=== PATIENT | female | born 1970 | race American Indian/Alaskan Native ===

== ENCOUNTER 2017-03-05 15:17 | Emergency (ER) | payer OTHER ==
[2017-03-05 15:30] VITALS: BP 154/77; PULSE 103; TEMP 99.1; BMI 26.7
--- NOTE | 2017-03-05 17:01 | PDOC ---
"History of Present Illness - General Chief Complaint: Injury Stated Complaint: HIP PAIN Time Seen by Provider: 03/05/17 16:59 History Source: Patient Exam Limitations: No Limitations - History of Present Illness Initial Comments: 03/05/17 17:03 My Chief Complaint: rt. hip pain History of Present Illness: 46-year-old female with a history of non-insulin- dependent diabetes, hypertension, depression and anxiety and gastric sleeve here today due to having pain in the right lateral hip 4 days after patient slid on the floor in her right hip. Patient denies any back pain or any radiation of pain down the leg. Patient denies any loss consciousness or any other injuries. Patient reports that pain is sharp when hip is turned different positions. Pt. denies numbness of rt. leg. Occurred: reports: other (4 days ago fall at work ) Severity: reports: moderate (rt. lateral hip) Pain Location: reports: lower extremity (rt. hip ), pelvis (rt.. lateral hip ) Method of Injury: Yes: fall Modifying Factors: improves with: immobilization, pain medication Loss of Consciousness: no loss of consciousness Associated Symptoms (Fall): denies symptoms Past History - Past Medical History Allergies/Adverse Reactions: Allergies Allergy/AdvReac Type Severity Reaction Status Date / Time No Known Drug Allergies Allergy Verified 03/05/17 15:28 SEAFOOD Allergy Intermediate Swelling Uncoded 03/05/17 15:28 Home Medications: Ambulatory Orders Naproxen [Naprosyn -] 500 mg PO BID PRN #14 tablet 03/05/17 Diabetes: Yes HTN: Yes Kidney Stones: Yes Psychiatric Problems: Yes (DEPRESSION,ANXEITY) - Surgical History Gastric Stapling: Yes (GASTRIC SLEEVE) - Psycho/Social/Smoking Cessation Hx Anxiety: Yes Suicidal Ideation: No Smoking Status: No Smoking History: Never smoked Have you smoked in the past 12 months: Yes Number of Cigarettes Smoked Daily: 5 'Breaking Loose' booklet given: 10/26/15 Hx Alcohol Use: No Drug/Substance Use Hx: No Substance Use Type: None Review of Systems - Review of Systems Able to Perform ROS?: Yes Constitutional: No: Symptoms Reported HEENTM: No: Symptoms Reported Respiratory: No: Symptoms reported Cardiac (ROS): No: Symptoms Reported ABD/GI: No: Symptoms Reported : No: Symptoms Reported Musculoskeletal: Yes: Joint Pain (rt. lateral hip ). No: Joint Swelling Integumentary: No: Symptoms Reported Neurological: No: Symptoms reported *Physical Exam - Vital Signs Last Vital Signs Temp Pulse Resp BP Pulse Ox 99.1 F 103 H 18 154/77 100 03/05/17 15:29 03/05/17 15:29 03/05/17 15:29 03/05/17 15:29 03/05/17 15:29 - Physical Exam General Appearance: Yes: Appropriately Dressed Respiratory/Chest: positive: Lungs Clear, Normal Breath Sounds. negative: Chest Tender, Respiratory Distress Cardiovascular: positive: Regular Rhythm, Regular Rate, S1, S2 Vascular Pulses: Dorsalis-Pedis (R): 4+ Musculoskeletal: positive: Normal Inspection. negative: CVA Tenderness, CVA Tenderness (R), CVA Tenderness (L), Vertebral Tenderness Extremity: positive: Normal Capillary Refill, Normal Inspection, Tender (rt. lateral hip ), Pelvis Stable. negative: Normal Range of Motion (rt. hip ), Swelling Integumentary: positive: Normal Color Neurologic: positive: Alert, Normal Response, Motor Strength 5/5 (b/l legs ), Respond to painful stimul (legs ). negative: Sensory Deficit (legs ) ED Treatment Course - RADIOLOGY Radiology Studies Ordered: Category Date Time Status HIP & PELVIS-RIGHT [RAD] Stat Radiology 03/05/17 16:59 Ordered Medical Decision Making - Medical Decision Making 03/05/17 17:06 46-year-old female with a history of [id number] diabetes, hypertension, depression and anxiety and gastric sleeve here today due to having pain in the right lateral hip 4 days after patient slid on the floor in her right hip. Patient denies any back pain or any radiation of pain down the leg. Patient denies any loss consciousness or any other injuries. Patient reports that pain is sharp when hip is turned different positions. Pt. denies numbness of rt. leg. Pt. denies any chance of being rt. hip pain r/o fracture FAll 4 days ago PLAN: xray rt. hip/pelvis no fracture noted percocet 5mg/325 mg po now 03/05/17 17:52 follow up with orthopedist for further evaluation as soon as possible 03/05/17 17:52 03/05/17 17:58 Confidential Drug Utilization Report Search Terms: Shreya Arnett, 1970 Search Date: 03/05/2017 05:58:00 PM This report was requested by: Yolanda Urrutia | Reference #: [id number] Others' Prescriptions Patient Name: Shreya Arnett Date: 1970 Address: [address] [place] [address] Sex: Female Rx Written Rx Dispensed Drug Quantity Days Supply Prescriber Name 02/27/2017 02/27/2017 oxycodone-acetaminophen 5-325 mg tab 40 20 Marcellus Bautista MD 02/02/2017 02/03/2017 oxycodone-acetaminophen 5-325 mg tab 35 17 Marcellus Bautista MD 03/05/17 18:49 NAPROSYN 500 MG BID PRN PAIN x 14 TABS FOLLOW UP WITH ORTHOPEDIST *DC/Admit/Observation/Transfer Diagnosis at time of Disposition: Fall Qualifiers: Encounter type: initial encounter Qualified Code(s): W19.XXXA - Unspecified fall, initial encounter Hip pain, acute Qualifiers: Laterality: right Qualified Code(s): M25.551 - Pain in right hip - Discharge Dispostion Disposition: HOME Condition at time of disposition: Stable - Prescriptions Prescriptions: Naproxen [Naprosyn -] 500 mg PO BID PRN #14 tablet PRN Reason: Pain - Referrals Referrals: Cheryl Mccracken PA [Primary Care Provider] - Jim Vizcaino MD [Staff Physician] - - Patient Instructions Additional Instructions: follow up with orthopedist as soon as possible for further evaluation Avoid strenous activities or exercise take ibuprofen as needed as directed by director of guidance for moderate pain return to emergency room if symptoms worsen or new symptoms develop Patient voiced understanding of discharge instructions and all questions were answered - Post Discharge Activity Work/School Note: Back to Work"
[2017-03-05] MEDS ORDERED: OXYCODONE/APAP 5/325MG COMBO TABLET PO ONE (17:52)
[2017-03-05] MEDS ORDERED: OXYCODONE/APAP 5/325MG COMBO TABLET ONE (17:56)
== END 2017-03-05 19:23 | disposition home or self-care (01) ==
LOC: JERFT 15:17
DX: M25.551 Pain in right hip (principal); W18.39XA Other fall on same level, initial encounter; Y93.89 Activity, other specified; Y92.511 Restaurant or cafe as the place of occurrence of the external cause; Y99.0 Civilian activity done for income or pay; I10 Essential (primary) hypertension; E11.9 Type 2 diabetes mellitus without complications; F41.8 Other specified anxiety disorders; Z87.442 Personal history of urinary calculi
CPT/HCPCS: 73523-TC; 99281-25

== ENCOUNTER 2017-06-02 12:58 | Day surgery (SDC) | payer OTHER ==
[2017-06-01 11:09] VITALS: BMI 27.3
[~2017-06-02 12:58] MED LIST: BETAMET ACET/BETAMET NA PH 30 MG/5 ML VIAL IM ONE; BUPIVACAINE HCL/PF 0.25% (2.5MG/ML) 10 ML VIAL IJ ONE; IOHEXOL 300 MG/ML INFUS..BTL IV ONE; LIDOCAINE HCL 1%, 10 MG/ML (20ML VIAL) IJ ONE
[2017-06-02] MEDS ORDERED: BETAMET ACET/BETAMET NA PH 30 MG/5 ML VIAL ONE (13:13)
[2017-06-02] MEDS ORDERED: LIDOCAINE HCL 1%, 10 MG/ML (20ML VIAL) ONE (13:13)
[2017-06-02] MEDS ORDERED: BUPIVACAINE HCL/PF 0.5% (5MG/ML) 10 ML VIAL ONE (13:14)
[2017-06-02] MEDS ORDERED: BUPIVACAINE HCL/PF 0.25% (2.5MG/ML) 10 ML VIAL ONE (13:14)
[2017-06-02 13:44] VITALS: TEMP 98
[2017-06-02] MEDS ORDERED: PROPOFOL 20 ML ONE ×2 (14:13→14:29)
[2017-06-02] MEDS ORDERED: LIDOCAINE HCL 2% (20ML MULTI-DOSE VIAL) NR ONE (14:13)
[2017-06-02] MEDS ORDERED: LIDOCAINE HCL 1%, 10 MG/ML (20ML VIAL) INF ONE (14:30)
[2017-06-02] MEDS ORDERED: BUPIVACAINE HCL/PF 0.25% (2.5MG/ML) 10 ML VIAL IJ ONE (14:30)
[2017-06-02] MEDS ORDERED: BETAMET ACET/BETAMET NA PH 30 MG/5 ML VIAL IM ONE (14:33)
[2017-06-02 17:24] VITALS: BP 101/58; PULSE 67
--- NOTE | 2017-06-04 11:56 | OP ---
DATE OF OPERATION: 06/02/2017 PREOPERATIVE DIAGNOSES: Low back pain and lumbar radiculopathy. POSTOPERATIVE DIAGNOSES: Low back pain and lumbar radiculopathy. PROCEDURE: Lumbar epidural steroid injection, interlaminar at left L4-L5 level without dye. ANESTHESIA: Local and MAC. ANESTHESIOLOGIST: Arianna Lisa MD CONSENT: I discussed with her in detail about the risks, benefits, and alternative treatment, not only limited to infection, fever, headache, numbness, tingling, and weakness; injury to blood vessels, muscles, and nerves. Patient understood, agreed, and signed the written consent. DESCRIPTION OF PROCEDURE: Patient was placed in the prone position with the head, abdomen, and legs supported with pillows. Lumbosacral area was prepped, draped with Betadine x3 and alcohol x3. Under fluoroscopy, left L4-L5 area was identified. At this level, 3 mL of 1% lidocaine was infiltrated into the skin and subcutaneous tissue. A 20-gauge 3-1/2-inch Tuohy needle was used to approach the epidural space with loss of resistance technique under intermittent fluoroscopy both AP and oblique view. After negative aspiration, a solution containing 2.5 mL of Celestone mixed with 0.25% preservative-free Marcaine, total of 5 mL was injected at this level. While needle was withdrawn, 1 mL of 1% lidocaine was infiltrated. Bleeding was checked. Betadine was wiped off. A sterile bandage was placed. Patient was transferred to recovery room. Patient was observed in ASU and discharged as ASU criteria. Patient was told to apply ice. If any problem, call me or report to the ER. Followup appointment was given. LUISA HWANG M.D. KYLE/[id number]
== END 2017-06-02 17:28 | disposition home or self-care (01) ==
LOC: JASU-SURG 12:58
PROVIDERS: ATTEND Physical Medicine & Rehabilitation
PROC: 3E0R3CZ (ICD-10-PCS; 2017-06-02)
PROC: B01BZZZ Fluoroscopy of Spinal Cord (ICD-10-PCS; 2017-06-02)
PROC: 3E0R33Z Introduction of Anti-inflammatory into Spinal Canal, Percutaneous Approach (ICD-10-PCS; principal; 2017-06-02 14:00)
DX: M54.16 Radiculopathy, lumbar region (principal); M54.5 Low back pain
CPT/HCPCS: 76000-TC

== ENCOUNTER 2017-07-21 08:54 | Emergency (ER) | payer OTHER ==
[2017-07-21 09:10] VITALS: BMI 26.5
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
[2017-07-21] MEDS ORDERED: KETOROLAC TROMETHAMINE 60 MG/2 ML VIAL IM ONE (09:36)
[2017-07-21] MEDS ORDERED: CYCLOBENZAPRINE HCL 10 MG TABLET (FP) PO ONE (09:36)
[2017-07-21] MEDS ORDERED: CYCLOBENZAPRINE HCL 10 MG TABLET (FP) ONE (10:01)
[2017-07-21] MEDS ORDERED: KETOROLAC TROMETHAMINE 60 MG/2 ML VIAL ONE (10:01)
[2017-07-21 10:15] LABS: URINE APPEARANCE SLCLOUDY; URINE BILIRUBIN NEGATIVE (NEGATIVE); URINE BLOOD NEGATIVE (NEGATIVE); URINE COLOR AMBER; URINE GLUCOSE (UA) NEGATIVE (NEGATIVE); URINE KETONE TRACE (NEGATIVE); URINE LEUK ESTERASE NEGATIVE (NEGATIVE); URINE NITRITE NEGATIVE (NEGATIVE); URINE UROBILINOGEN NEGATIVE mg/dL (0.2-1.0)
[2017-07-21 10:23] LABS: URINE PROTEIN 1+ (NEGATIVE)
[2017-07-21 10:52] LABS: URINE BACTERIA RARE /hpf (NONE SEEN); URINE MUCUS MANY; URINE RBC 3 /hpf (0-3); URINE WBC 2 /hpf (3-5)
[2017-07-21 11:10] VITALS: BP 123/68; PULSE 71; TEMP 98.1
== END 2017-07-21 11:19 | disposition home or self-care (01) ==
LOC: JER 08:54 → JERFT 08:54 → JER 11:19
PROC: 3E0233Z Introduction of Anti-inflammatory into Muscle, Percutaneous Approach (ICD-10-PCS; principal; 2017-07-21)
DX: M54.41 Lumbago with sciatica, right side (principal); I10 Essential (primary) hypertension; E11.9 Type 2 diabetes mellitus without complications; Z87.442 Personal history of urinary calculi
CPT/HCPCS: 81003; 81015; 84703; 96372; 99282-25

== ENCOUNTER 2017-11-11 10:28 | Emergency (ER) | payer OTHER ==
[2017-11-11 10:45] VITALS: BP 111/78; PULSE 91; TEMP 98.2; BMI 25.4
[2017-11-11] MEDS ORDERED: KETOROLAC TROMETHAMINE 60 MG/2 ML VIAL IM ONE (11:43)
--- NOTE | 2017-11-11 11:49 | PDOC ---
History of Present Illness - General Chief Complaint: Pain Stated Complaint: RT SIDE PAIN Time Seen by Provider: 11/11/17 11:34 History Source: Patient Exam Limitations: No Limitations - History of Present Illness Initial Comments: 11/11/17 11:46 Patient came tearful with pain to her right shoulder and upper arm times proximally 2 weeks. States had an incident approximately one month ago where had same type of pain that spontaneously resolved. This episode has not resolved with attempts using icy hot, BenGay creams, ibuprofen and Tylenol. Patient denies any changes in exercise, heavy lifting or Accidents. 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 Is uncertain as to cause, denies fever, swelling, weakness to her hand. States certain movements including abduction and rotation exacerbates the pain more. Occurred: reports: last week Severity: reports: moderate, severe Pain Location: reports: upper extremity (right shoulder) Method of Injury: Yes: unknown Associated Symptoms (Fall): denies symptoms Past History - Travel Traveled outside of the country in the last 30 days: No Close contact w/someone who was outside of country & ill: No - Past Medical History Allergies/Adverse Reactions: Allergies Allergy/AdvReac Type Severity Reaction Status Date / Time No Known Drug Allergies Allergy Verified 11/11/17 10:42 SEAFOOD Allergy Intermediate Swelling Uncoded 11/11/17 10:42 Home Medications: Ambulatory Orders Naproxen [Naprosyn -] 500 mg PO BID #14 tablet 11/11/17 Oxycodone HCl/Acetaminophen [Percocet 5-325 mg Tablet -] 1 - 2 tab PO Q4H PRN # 7 tablet MDD 4 11/11/17 COPD: No Diabetes: Yes HTN: Yes Kidney Stones: Yes Psychiatric Problems: Yes (DEPRESSION,ANXEITY) - Surgical History Abdominal Surgery: Yes Gastric Stapling: Yes (GASTRIC SLEEVE) - Suicide/Smoking/Psychosocial Hx Smoking Status: No Smoking History: Never smoked Have you smoked in the past 12 months: Yes Number of Cigarettes Smoked Daily: 5 'Breaking Loose' booklet given: 09/11/17 Hx Alcohol Use: No Drug/Substance Use Hx: No Substance Use Type: None Trauma Specific PMHX - Complaint Specific PMHX Back Injury: No Neck Injury: No Review of Systems - Review of Systems Able to Perform ROS?: Yes Is the patient limited British proficient: Yes Constitutional: Yes: Symptoms Reported, See HPI, Malaise. No: Fever HEENTM: Yes: See HPI. No: Symptoms Reported Respiratory: Yes: See HPI. No: Symptoms reported, Cough ABD/GI: No: Symptoms Reported : No: Symptoms Reported Musculoskeletal: Yes: Symptoms Reported, See HPI, Joint Pain (right shoulder), Joint Swelling, Muscle Pain Integumentary: Yes: See HPI. No: Symptoms Reported, Rash Neurological: Yes: See HPI. No: Symptoms reported, Numbness, Paresthesia All Other Systems: Reviewed and Negative *Physical Exam - Vital Signs Last Vital Signs Temp Pulse Resp BP Pulse Ox 98.2 F 91 H 18 111/78 99 11/11/17 10:42 11/11/17 10:42 11/11/17 10:42 11/11/17 10:42 11/11/17 10:42 - Physical Exam General Appearance: Yes: Nourished, Appropriately Dressed, Mild Distress, Moderate Distress HEENT: positive: BERT, Normal ENT Inspection, TMs Normal, Pharynx Normal Neck: positive: Tender, Supple. negative: Lymphadenopathy (R), Lymphadenopathy (L) Respiratory/Chest: positive: Lungs Clear, Normal Breath Sounds Musculoskeletal: positive: Normal Inspection, Decreased Range of Motion. negative: Vertebral Tenderness Extremity: positive: Normal Capillary Refill, Normal Inspection. negative: Normal Range of Motion (limited range of motion secondary to exquisite pain to right upper arm. Has no bogginess or tension to muscles, however tenderness is reproduced at ligamentous insertion of inferior deltoid area. Range of motion limited to approximately 30 abduction and worse against resistance. Unable to forward flex the posterior flex past 30. Strong grasp, flexion and extension to wrist and hand. Neurovascular intact.) Integumentary: positive: Normal Color, Dry, Warm Neurologic: positive: manager of patient II-XII NML intact, Fully Oriented, Alert, Normal Mood/ Affect, Normal Response, Motor Strength 5/5 ED Treatment Course - RADIOLOGY Radiology Studies Ordered: Category Date Time Status SHOULDER-RIGHT [RAD] Stat Radiology 11/11/17 11:43 Ordered Progress Note - Progress Note Progress Note: Right shoulder tendinitis, will treat with NSAIDs and have follow-up with orthopedist for further intervention as needed. Provided #7 Percocet for severe pain *DC/Admit/Observation/Transfer Diagnosis at time of Disposition: Tendinitis of shoulder Qualifiers: Laterality: right Qualified Code(s): M75.81 - Other shoulder lesions, right shoulder - Discharge Dispostion Disposition: HOME Condition at time of disposition: Stable - Prescriptions Prescriptions: Naproxen [Naprosyn -] 500 mg PO BID #14 tablet Oxycodone HCl/Acetaminophen [Percocet 5-325 mg Tablet -] 1 - 2 tab PO Q4H PRN # 7 tablet MDD 4 PRN Reason: Pain - Referrals Referrals: Jim Vizcaino MD [Staff Physician] - - Patient Instructions Printed Discharge Instructions: DI for Shoulder Tendinopathy Additional Instructions: Rest, ice to area on and off for 15 minutes 4-6 times a day Avoid heavy lifting or exercise until pain and swelling is resolved or until further directed Keep area highly elevated to reduce swelling Use splints/Placido wrap as directed Followup with orthopedist in one to 2 days if not improving, if significantly improved may wait one week for followup with orthopedist May use Naprosyn 500 mg tablet every 8 hours as needed for pain May use Percocet for severe pain - Post Discharge Activity Forms/Work/School Notes: Back to Work
[2017-11-11] MEDS ORDERED: KETOROLAC TROMETHAMINE 60 MG/2 ML VIAL ONE (11:50)
== END 2017-11-11 12:25 | disposition home or self-care (01) ==
LOC: JERFT 10:28
PROC: 3E0233Z Introduction of Anti-inflammatory into Muscle, Percutaneous Approach (ICD-10-PCS; principal; 2017-11-11)
DX: M75.81 Other shoulder lesions, right shoulder (principal)
CPT/HCPCS: 73030-TC-RT; 96372; 99281-25

== ENCOUNTER 2018-05-06 15:56 | Emergency (ER) | payer OTHER ==
--- NOTE | 2018-05-06 16:34 | PDOC ---
Rapid Medical Evaluation Time Seen by Provider: 05/06/18 16:33 Medical Evaluation: Allergies Allergy/AdvReac Type Severity Reaction Status Date / Time No Known Drug Allergies Allergy Verified 11/11/17 10:42 SEAFOOD Allergy Intermediate Swelling Uncoded 11/11/17 10:42 I have performed a brief in-person evaluation of this patient. The patient presents with a chief complaint of: sharp pain in left eye with left eye redness today. Patient does not wear contacts Pertinent physical exam findings: injected left conjunctiva. clear discharge from left eye. No visible rash. I have ordered the following: nothing. Patient had a hysterectomy. The patient will proceed to the ED for further evaluation. Discharge Disposition - Diagnosis Left eye pain - Referrals - Patient Instructions - Post Discharge Activity
[2018-05-06 16:38] VITALS: BP 133/72; PULSE 91; TEMP 98.7; BMI 24.4
--- NOTE | 2018-05-06 17:05 | PDOC ---
History of Present Illness - General Chief Complaint: Eye Problem Stated Complaint: EYE PROBLEM Time Seen by Provider: 05/06/18 16:33 History Source: Patient Exam Limitations: No Limitations - History of Present Illness Initial Comments: 05/06/18 17:00 47-year-old female complains of left eye burning and pain without visual changes since this morning upon awakening. Patient denies foreign body, wearing eye contacts, or injury to the eye. Timing/Duration: 4-6 hours Severity: moderate Associated Symptoms: reports: denies symptoms Past History - Travel Traveled outside of the country in the last 30 days: No - Past Medical History Allergies/Adverse Reactions: Allergies Allergy/AdvReac Type Severity Reaction Status Date / Time No Known Drug Allergies Allergy Verified 05/06/18 16:35 SEAFOOD Allergy Intermediate Swelling Uncoded 11/11/17 10:42 Home Medications: Ambulatory Orders NK [No Known Home Medication] 05/06/18 COPD: No Diabetes: Yes HTN: Yes Kidney Stones: Yes Psychiatric Problems: Yes (DEPRESSION,ANXEITY) - Surgical History Abdominal Surgery: Yes Gastric Stapling: Yes (GASTRIC SLEEVE) - Suicide/Smoking/Psychosocial Hx Smoking Status: No Smoking History: Never smoked Have you smoked in the past 12 months: Yes Number of Cigarettes Smoked Daily: 5 Information on smoking cessation initiated: No 'Breaking Loose' booklet given: 09/11/17 Hx Alcohol Use: No Drug/Substance Use Hx: No Substance Use Type: None Patient Lives Alone: No Lives with/in: spouse/SO Review of Systems - Review of Systems Able to Perform ROS?: No Constitutional: No: Symptoms Reported HEENTM: Yes: Eye Pain, Tearing Integumentary: No: Symptoms Reported Neurological: No: Symptoms reported, Headache *Physical Exam - Vital Signs Last Vital Signs Temp Pulse Resp BP Pulse Ox 98.7 F 91 H 18 133/72 98 05/06/18 16:35 05/06/18 16:35 05/06/18 16:35 05/06/18 16:35 05/06/18 16:35 - Physical Exam General Appearance: Yes: Nourished, Appropriately Dressed. No: Apparent Distress HEENT: positive: EOMI, BERT ( left eye- conjunctiva pink, Sclera erythematous. noted 1 cm corneal abrasionfrom 10:00 t), Pharynx Normal. negative: Pale Conjunctivae Neck: positive: Supple Respiratory/Chest: positive: Lungs Clear, Normal Breath Sounds. negative: Respiratory Distress, Accessory Muscle Use Cardiovascular: positive: Regular Rhythm, Regular Rate. negative: Murmur Gastrointestinal/Abdominal: positive: Soft Integumentary: positive: Normal Color, Warm, Moist Neurologic: positive: Motor Strength 5/5 (ambulatory) Medical Decision Making - Medical Decision Making 05/06/18 17:08 Patient with left eye pain. After fluorescein staining patient was noted to have a corneal abrasion. Patient will be ordered for ointment along with Optho referral. *DC/Admit/Observation/Transfer Diagnosis at time of Disposition: Left eye pain, Corneal abrasion, left - Discharge Dispostion Disposition: HOME Condition at time of disposition: Good - Referrals Referrals: Saeid Nichols MD [Staff Physician] - - Patient Instructions Printed Discharge Instructions: DI for Corneal Abrasion Additional Instructions: Use ointment as prescribed. Please avoid rubbing or itching. Please follow up with ophthalmology. Allow eye to rest. Avoiding frequent opening closing and wear sunglasses when outside. - Post Discharge Activity
== END 2018-05-06 17:31 | disposition home or self-care (01) ==
LOC: JERFT 15:56
DX: S05.02XA Injury of conjunctiva and corneal abrasion without foreign body, left eye, initial encounter (principal); I10 Essential (primary) hypertension; Z87.442 Personal history of urinary calculi; Z91.013 Allergy to seafood
CPT/HCPCS: 99281-25

== ENCOUNTER 2018-07-18 16:05 | Emergency (ER) | payer OTHER ==
[2018-07-18 16:12] VITALS: BP 112/73; PULSE 86; TEMP 97.9; BMI 25.4
--- NOTE | 2018-07-18 16:20 | PDOC ---
History of Present Illness - General Chief Complaint: Cold Symptoms Stated Complaint: COUGH Time Seen by Provider: 07/18/18 16:07 History Source: Patient Exam Limitations: No Limitations - History of Present Illness Initial Comments: 07/18/18 16:15 47 y/o female with cough, congestion for 5 days. No fever or chills. Mild productive cough. No sick contacts, traveling or SOB. Denies back pain or chest pain. Past History - Past Medical History Allergies/Adverse Reactions: Allergies Allergy/AdvReac Type Severity Reaction Status Date / Time No Known Drug Allergies Allergy Verified 05/06/18 16:35 SEAFOOD Allergy Intermediate Swelling Uncoded 11/11/17 10:42 Home Medications: Ambulatory Orders Azithromycin [Zithromax -] 250 mg PO UTDICT #6 tab 07/18/18 Benzonatate [Tessalon Pearls -] 100 mg PO TID #21 capsule 07/18/18 COPD: No Diabetes: Yes HTN: Yes Kidney Stones: Yes Psychiatric Problems: Yes (DEPRESSION,ANXEITY) - Surgical History Abdominal Surgery: Yes Gastric Stapling: Yes (GASTRIC SLEEVE) - Suicide/Smoking/Psychosocial Hx Smoking Status: No Smoking History: Former smoker Have you smoked in the past 12 months: No Number of Cigarettes Smoked Daily: 0 If you are a former smoker, when did you quit?: 2015 Information on smoking cessation initiated: Yes 'Breaking Loose' booklet given: 09/11/17 Hx Alcohol Use: No Drug/Substance Use Hx: No Substance Use Type: None Review of Systems - Review of Systems Able to Perform ROS?: Yes Is the patient limited Setswana proficient: No Constitutional: No: Chills, Fever, Malaise HEENTM: No: Throat Pain Respiratory: Yes: Cough, Productive cough. No: Shortness of Breath, Hemoptysis Cardiac (ROS): No: Chest Pain ABD/GI: No: Nausea, Vomiting Musculoskeletal: No: Back Pain All Other Systems: Reviewed and Negative *Physical Exam - Vital Signs Last Vital Signs Temp Pulse Resp BP Pulse Ox 97.9 F 86 20 112/73 97 07/18/18 16:06 07/18/18 16:06 07/18/18 16:06 07/18/18 16:06 07/18/18 16:06 - Physical Exam General Appearance: Yes: Nourished, Appropriately Dressed. No: Apparent Distress HEENT: positive: EOMI, BERT, Normal ENT Inspection, Normal Voice, Symmetrical, Pharynx Normal Neck: positive: Trachea midline, Normal Thyroid, Supple. negative: Tender, Rigid Respiratory/Chest: positive: Lungs Clear (d), Normal Breath Sounds. negative: Chest Tender, Respiratory Distress Cardiovascular: positive: Regular Rhythm, Regular Rate, S1, S2. negative: Edema , JVD, Murmur Vascular Pulses: Femoral (R): 4+, Femoral (L): 4+, Carotid (R): 4+, Carotid (L) : 4+, Dorsalis-Pedis (R): 4+, Doralis-Pedis (L): 4+ Gastrointestinal/Abdominal: positive: Normal Bowel Sounds, Flat, Soft. negative : Tender Lymphatic: negative: Adenopathy, Tenderness, Other Musculoskeletal: positive: Normal Inspection. 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-XII NML intact, Fully Oriented, Alert, Normal Mood/ Affect, Normal Response, Motor Strength 5/5 ED Treatment Course - ADDITIONAL ORDERS Additional order review: 07/18/18 16:17 Patient appears to have bronchitis Will cover with Z-pack and Kalinasalon Aleida Patient is in agreement with plan If worsen return to ER *DC/Admit/Observation/Transfer Diagnosis at time of Disposition: Bronchitis Diagnosis at time of Disposition: (Ruled Out): Bronchitis due to Staphylococcus aureus - Discharge Dispostion Disposition: HOME Condition at time of disposition: Stable Decision to Admit order: No - Referrals - Patient Instructions Printed Discharge Instructions: DI for Acute Bronchitis Additional Instructions: Fluids, rest, Motrin Joann Shin as directed Z-pack as directed If worsen return to ER - Post Discharge Activity
== END 2018-07-18 17:07 | disposition home or self-care (01) ==
LOC: FER 16:05
DX: J40 Bronchitis, not specified as acute or chronic (principal); Z87.891 Personal history of nicotine dependence; Z98.84 Bariatric surgery status
CPT/HCPCS: 99281-25

== ENCOUNTER 2018-12-01 10:51 | Emergency (ER) | payer SELFPAY ==
[2018-12-01 11:05] VITALS: BP 125/84; PULSE 111; TEMP 98.7; BMI 28.3
--- NOTE | 2018-12-01 12:58 | PDOC ---
History of Present Illness - General Chief Complaint: Cold Symptoms Stated Complaint: FEVER/BODY ACHE Time Seen by Provider: 12/01/18 12:53 History Source: Patient Exam Limitations: No Limitations Past History - Travel Traveled outside of the country in the last 30 days: No Close contact w/someone who was outside of country & ill: No - Past Medical History Allergies/Adverse Reactions: Allergies Allergy/AdvReac Type Severity Reaction Status Date / Time No Known Drug Allergies Allergy Verified 12/01/18 11:05 SEAFOOD Allergy Intermediate Swelling Uncoded 12/01/18 11:05 Home Medications: Ambulatory Orders Azithromycin [Zithromax -] 250 mg PO UTDICT #6 tab 07/18/18 Benzonatate [Tessalon Pearls -] 100 mg PO TID #21 capsule 07/18/18 Acetaminophen [Tylenol] 650 mg PO Q4H #30 tablet 12/01/18 Albuterol Sulfate Inhaler - [Ventolin HFA Inhaler -] 1 - 2 inh PO Q4H #1 inhaler 12/01/18 Guaifenesin AC [Robitussin AC] 10 ml PO Q8H #200 ml MDD 3 12/01/18 Ibuprofen 600 mg PO Q6H #30 tablet 12/01/18 Oseltamivir Phosphate [Tamiflu] 75 mg PO BID #10 capsule 12/01/18 COPD: No Diabetes: Yes HTN: Yes Kidney Stones: Yes Psychiatric Problems: Yes (DEPRESSION,ANXEITY) - Surgical History Abdominal Surgery: Yes Gastric Stapling: Yes (GASTRIC SLEEVE) - Suicide/Smoking/Psychosocial Hx Smoking Status: No Smoking History: Never smoked Have you smoked in the past 12 months: No Number of Cigarettes Smoked Daily: 0 If you are a former smoker, when did you quit?: 2016 Information on smoking cessation initiated: No 'Breaking Loose' booklet given: 09/11/17 Hx Alcohol Use: No Drug/Substance Use Hx: No Substance Use Type: None Review of Systems - Review of Systems Able to Perform ROS?: Yes Comments:: 12/01/18 13:51 CONSTITUTIONAL: Present: Fever, chills, body aches Absent: diaphoresis, generalized weakness, malaise, loss of appetite HEENT: Present: rhinorrhea, nasal congestion, throat pain. Absent: difficulty swallowing, mouth swelling, ear pain, eye pain, visual Changes CARDIOVASCULAR: Absent: chest pain, loss of consciousness, palpitations, irregular heart rate, peripheral edema RESPIRATORY: Present: Cough Absent: shortness of breath, dyspnea with exertion, orthopnea, wheezing, stridor, hemoptysis GASTROINTESTINAL: Absent: abdominal pain, abdominal distension, nausea, vomiting, diarrhea, constipation, melena, hematochezia SKIN: Absent: rash, itching, pallor NEUROLOGIC: Present: headache Absent: focal weakness or paresthesias, dizziness, unsteady gait, seizure, mental status changes, bladder or bowel incontinence Is the patient limited Tajik proficient: No *Physical Exam - Vital Signs Last Vital Signs Temp Pulse Resp BP Pulse Ox 98.7 F 111 H 19 125/84 96 12/01/18 11:03 12/01/18 11:03 12/01/18 11:03 12/01/18 11:03 12/01/18 11:03 - Physical Exam Comments: 12/01/18 12:57 GENERAL: Well developed, well nourished. Awake and alert. No acute distress. HEENT: Normocephalic, atraumatic. PERRLA, EOMI. No conjunctival pallor. Sclera are non- icteric. Moist mucous membranes. Oropharynx is clear. NECK: Supple. Full ROM. No JVD. Carotid pulses 2+ and symmetric, without bruits. No thyromegaly. No lymphadenopathy. CARDIOVASCULAR: Regular rate and rhythm. No murmurs, rubs, or gallops. Distal pulses are 2+ and symmetric. PULMONARY: No evidence of respiratory distress. Lungs clear to auscultation bilaterally. No wheezing, rales or rhonchi. ABDOMINAL: Soft. Non-tender. Non-distended. No rebound or guarding. No organomegaly. Normoactive bowel sounds. MUSCULOSKELETAL Normal range of motion at all joints. No bony deformities or tenderness. No CVA tenderness. EXTREMITIES: No cyanosis. No clubbing. No edema. No calf tenderness. SKIN: Warm and dry. Normal capillary refill. No rashes. No jaundice. NEUROLOGICAL: Alert, awake, appropriate. Cranial nerves 2-12 intact. No deficits to light touch and temperature in face, upper extremities and lower extremities. No motor deficits in the in face, upper extremities and lower extremities. Normoreflexic in the upper and lower extremities. Normal speech. Toes are down- going bilaterally. Gait is normal without ataxia. PSYCHIATRIC: Cooperative. Good eye contact. Appropriate mood and affect. Moderate Sedation - Procedure Monitoring Vital Signs: Procedure Monitoring Vital Signs Temperature 98.7 F 12/01/18 11:03 Pulse Rate 111 H 12/01/18 11:03 Respiratory Rate 12/01/18 11:03 Blood Pressure 125/84 12/01/18 11:03 O2 Sat by Pulse Oximetry (%) 96 12/01/18 11:03 *DC/Admit/Observation/Transfer Diagnosis at time of Disposition: Influenza - Discharge Dispostion Disposition: HOME Condition at time of disposition: Stable Decision to Admit order: No - Referrals Referrals: Rafael Tang MD [Staff Physician] - - Patient Instructions Printed Discharge Instructions: DI for Influenza -- Adult Additional Instructions: You have the flu. This is a virus that will get better on its own in approximately 7-10 days. You will most likely have a fever for 7-10 days because of the flu. This is to be expected. Drink plenty of fluids to prevent dehydration and get plenty of rest. Warm tea and cough drops may help your symptoms as well. Take the tamiflu twice a day for 5 days to help reduce the symptoms of the flu. This medication will not cure the flu. Take Motrin as directed for pain and fever. Take Tylenol as directed for pain and fever Take all other medications as prescribed. Follow up with your primary care doctor this week Return to the ED for difficulty breathing, shortness of breath, weakness, or if you have any other changes in your symptoms. - Post Discharge Activity Forms/Work/School Notes: Back to Work
[2018-12-01] MEDS ORDERED: ALBUTEROL SO4 2.5/IPRATROPIUM 0.5 INH SOL 3 ML VIAL.NEB. NEB ONE ×2 (13:06→13:13)
[2018-12-01] MEDS ORDERED: DEXAMETHASONE LIQUID 0.5 MG/5 ML 240 ML BULK BOTTLE PO ONE (13:06)
[2018-12-01] MEDS ORDERED: ACETAMINOPHEN 325 MG TABLET (FP) PO ONE (13:07)
[2018-12-01] MEDS ORDERED: guaiFENesin/CODEINE 10 ML UNIT-DOSE CUPS PO ONE (13:07)
[2018-12-01] MEDS ORDERED: DEXAMETHASONE SOD PHOSPHATE 10 MG/1 ML VIAL ONE (13:13)
[2018-12-01] MEDS ORDERED: guaiFENesin/CODEINE 5 ML UNIT-DOSE CUPS PO ONE (13:13)
[2018-12-01] MEDS ORDERED: ACETAMINOPHEN 325 MG TABLET (FP) ONE (13:14)
== END 2018-12-01 13:58 | disposition home or self-care (01) ==
LOC: JERFT 10:51
DX: J11.1 Influenza due to unidentified influenza virus with other respiratory manifestations (principal); Z87.891 Personal history of nicotine dependence; I10 Essential (primary) hypertension; E11.9 Type 2 diabetes mellitus without complications; F41.8 Other specified anxiety disorders; Z98.84 Bariatric surgery status
CPT/HCPCS: 71046-TC-FY; 87070; 87804; 87880; 99281-25

== ENCOUNTER 2018-12-03 08:23 | Emergency (ER) | payer SELFPAY ==
[2018-12-03 08:30] VITALS: TEMP 98.6; BMI 23.6
[2018-12-03] MEDS ORDERED: ACETAMINOPHEN 500 MG TABLET (FP) PO ONE (09:10)
[2018-12-03] MEDS ORDERED: ACETAMINOPHEN 325 MG TABLET (FP) ONE (09:16)
--- NOTE | 2018-12-03 09:23 | PDOC ---
Attending Attestation - Resident Resident Name: Dean Bates - ED Attending Attestation I have performed the following: I have examined & evaluated the patient, The case was reviewed & discussed with the resident, I agree w/resident's findings & plan, Exceptions are as noted - HPI HPI: 12/03/18 11:10 48 years [place] past medical history presents to the emergency Department with nausea and diarrhea fever chills body aches tested positive for the flu the other day symptoms have worsened since starting on Tamiflu. Mild headache no neck pain no rash symptoms are moderate persistent constant worsening since starting medication no alleviating factors. - Physicial Exam PE: 12/03/18 11:10 Vitals: Triage Vital signs reviewed General Appearance: no acute distress, well nourished well developed, Head: Atraumatic, Eyes: Pupils equal reactive round, extraocular movement intact Neck: Supple;No Nucal rigidity Chest Wall: Nontender Cardiac: Regular rate and rhythym, no murmurs, no rubs, no gallops, Lungs: Clear to auscultation bilateral, good air movement bilaterally, Abdomen: Soft, non distended, normal bowel sounds, non tender to palpation Extremities: Full range of motion to all extremities, no cyanosis, clubbing, or edema Skin: Warm and dry, no rashes or lesions, no rash, no petechiae Psych: normal mood, normal affect - Medical Decision Making 12/03/18 11:11 History examination consistent with influenza symptomatology complicated by side effect profile from Tamiflu Discussed risks and benefits of continuing Tamiflu patient is healthy with no coronary disease no indication to continue Tamiflu at this time given anxiety symptomatology and GI symptoms We will discharge with Zofran alternating Tylenol Motrin she'll follow-up with her doctor She will return to the ED for any severe worsening symptoms. Findings, need follow-up and strict return instructions discussed with patient.
[2018-12-03] MEDS ORDERED: ONDANSETRON *ODT* 4 MG TABLET SL ONE (09:32)
[2018-12-03] MEDS ORDERED: diphenhydrAMINE HCL 25 MG CAPSULE (FP) PO ONE ×2 (09:32→10:00)
--- NOTE | 2018-12-03 09:44 | PDOC ---
History of Present Illness - General Chief Complaint: Psychiatric Stated Complaint: ANXIETY Time Seen by Provider: 12/03/18 08:35 History Source: Patient, Old Records Exam Limitations: No Limitations - History of Present Illness Initial Comments: HPI: 48 y/o female presenting to [facility] ER via ambulance complaining of fever, body aches, nausea, and diarrhea since Thursday. Woke up this morning complaining of a panic attack and subjective fever. Endorses a heightened sense of anxiety and rapid breathing. Reports a history of similar symptoms in the past. Pt was evaluated at this department on Thursday (01 Dec 2018) for similar complaints and found to be Flu A positive. CXR was unremarkable for acute cardiopulmonary process. Throat culture was negative for beta hemolytic strep. Pt was prescribed Tamiflu and discharged home. Pt reports tolerating PO well in interim. Medical Hx: - Anxiety, not medicated Past History - Past Medical History Allergies/Adverse Reactions: Allergies Allergy/AdvReac Type Severity Reaction Status Date / Time No Known Drug Allergies Allergy Verified 12/03/18 08:31 SEAFOOD Allergy Intermediate Swelling Uncoded 12/03/18 08:31 Home Medications: Ambulatory Orders Azithromycin [Zithromax -] 250 mg PO UTDICT #6 tab 07/18/18 Benzonatate [Tessalon Pearls -] 100 mg PO TID #21 capsule 07/18/18 Acetaminophen [Tylenol] 650 mg PO Q4H #30 tablet 12/01/18 Albuterol Sulfate Inhaler - [Ventolin HFA Inhaler -] 1 - 2 inh PO Q4H #1 inhaler 12/01/18 Guaifenesin AC [Robitussin AC] 10 ml PO Q8H #200 ml MDD 3 12/01/18 Ibuprofen 600 mg PO Q6H #30 tablet 12/01/18 Ondansetron [Zofran -] 4 mg PO Q8H #10 tablet 12/03/18 COPD: No Diabetes: Yes HTN: Yes Kidney Stones: Yes Psychiatric Problems: Yes (DEPRESSION,ANXEITY) - Surgical History Abdominal Surgery: Yes Gastric Stapling: Yes (GASTRIC SLEEVE) - Suicide/Smoking/Psychosocial Hx Smoking Status: No Smoking History: Never smoked Have you smoked in the past 12 months: No Number of Cigarettes Smoked Daily: 0 If you are a former smoker, when did you quit?: 2015 'Breaking Loose' booklet given: 09/11/17 Hx Alcohol Use: No Drug/Substance Use Hx: No Substance Use Type: None Review of Systems - Review of Systems Able to Perform ROS?: Yes Comments:: In addition to that documented in the HPI above, the additional ROS was obtained : Constitutional: Endorses fevers and chills Eyes: Denies vision changes ENMT: Denies sore throat CV: Denies chest pain Resp: Endorses resolved episode of tachypnea. No active SOB at time of interview. GI: Endorses nausea and diarrhea : Denies painful urination MSK: Denies recent trauma Skin: Denies new rashes Neuro: Denies new numbness or tingling or weakness Endocrine: Denies polyuria Heme: Denies bleeding or bruising *Physical Exam - Vital Signs Last Vital Signs Temp Pulse Resp BP Pulse Ox 98.6 F 88 16 104/66 100 12/03/18 08:28 12/03/18 08:28 12/03/18 08:28 12/03/18 08:28 12/03/18 08:28 - Physical Exam Comments: Constitutional: Well-developed, well-nourished, non-toxic female in no acute distress. Found semi-fowlers on hospital bed. Alert and oriented x4. Answered all questions appropriately and completely. Speech was non-labored, non- pressured. Head: Normocephalic. No obvious external signs of trauma. Eyes: Sclerae white. Conjunctiva moist and not injected. Ears: Hearing grossly intact. Nose: No nasal discharge. Throat: Oral cavity and pharynx normal. No inflammation, swelling, exudate, or lesions. Neck: Supple, trachea is midline. Cardiovascular / Chest: Regular rate and regular rhythm. No murmur, rubs, clicks, or gallops. Peripheral pulses: radial pulses full. Respiratory: Breathing unlabored. Equal chest rise and fall. Clear to auscultation bilaterally. No stridor, no wheezing, no rhonchi. Gastrointestinal: abdomen is soft, non-tender, non-distended. Neuro: Alert and oriented. Moving all four extremities spontaneously. Skin: Warm, dry, and intact. No bruising, rashes, or other lesions. Psych: Affect: appropriate. Mood: normal. Moderate Sedation - Procedure Monitoring Vital Signs: Procedure Monitoring Vital Signs Temperature 98.6 F 12/03/18 08:28 Pulse Rate 88 12/03/18 08:28 Respiratory Rate 16 12/03/18 08:28 Blood Pressure 104/66 12/03/18 08:28 O2 Sat by Pulse Oximetry (%) 100 12/03/18 08:28 ED Treatment Course - Medications Given in the ED: ED Medications Discontinued Medications Generic Name Dose Route Start Last Admin Trade Name Jono PRN Reason Stop Dose Admin Acetaminophen 975 mg 12/03/18 09:10 12/03/18 09:19 Tylenol - PO 12/03/18 09:11 975 mg ONCE ONE Administration Medical Decision Making - Medical Decision Making *Reviewed vital signs, nursing notes, and prior visit documentation (if available). 48 y/o female flu A positive return visit for persistent flu like symptoms with anxiety symptoms this morning. Afebrile on arrival. Vitals unremarkable for hypotension or tachycardia. Suspect symptoms are likely combination of symptoms of influenza and side effects of oseltamivir (Tamiflu). Pt is not within a high risk category, will suggest discontinuing medications. Ordered Tylenol, Zofran, and Benadryl for symptom relief. Pt reassessed by ED attending. Reports feeling better. Will discontinue oseltamivir. Encouraged to alternate Tylenol and Advil as needed for symptoms. Will prescribe PO Zofran for further symptom relief. *DC/Admit/Observation/Transfer Diagnosis at time of Disposition: Flu - Discharge Dispostion Disposition: HOME Condition at time of disposition: Stable Decision to Admit order: No - Prescriptions Prescriptions: Ondansetron [Zofran -] 4 mg PO Q8H #10 tablet - Referrals - Patient Instructions Printed Discharge Instructions: DI for Influenza -- Adult Additional Instructions: You were seen today for anxiety and flu symptoms. You tested positive for the flu at your last visit. Your symptoms are likely related to the flu illness as well as possible side effect from the Tamiflu that was prescribed. You should stop taking the Tamiflu at this time. I have sent a prescription for Zofran to [facility]. This new medication should help with your nausea and vomiting. You can also alternate over the counter Advil and Tylenol every two hours as needed. Take as directed on the package insert. Do not exceed the recommended dosage. Please continue to drink fluids (water, Gatorade, etc) to stay hydrated. Follow up with your primary care doctor as needed. Go to the nearest emergency department if your condition worsens or you feel like you need additional emergency evaluation. Print Language: SETSWANA - Post Discharge Activity
[2018-12-03] MEDS ORDERED: ONDANSETRON *ODT* 4 MG TABLET ONE (10:00)
[2018-12-03 11:39] VITALS: BP 101/64; PULSE 89
--- NOTE | 2018-12-11 22:13 | EKG ---
Test Reason : Blood Pressure : / mmHG Vent. Rate : 082 BPM Atrial Rate : 082 BPM P-R Int : 130 ms QRS Dur : 078 ms QT Int : 378 ms P-R-T Axes : 002 046 033 degrees QTc Int : 441 ms NORMAL SINUS RHYTHM NORMAL ECG WHEN COMPARED WITH ECG OF 28-APR-2011 19:50, NO SIGNIFICANT CHANGE WAS FOUND Confirmed by CALLY GARCIA MD ([id number]) on 12/11/2018 10:12:43 PM Referred By: Confirmed By:CALLY GARCIA MD
== END 2018-12-03 11:45 | disposition home or self-care (01) ==
LOC: JER 08:23
DX: J09.X3 Influenza due to identified novel influenza A virus with gastrointestinal manifestations (principal); F41.0 Panic disorder [episodic paroxysmal anxiety]; E11.9 Type 2 diabetes mellitus without complications; F32.9 Major depressive disorder, single episode, unspecified
CPT/HCPCS: 93005; 93010; 99282-25; Q0162

== ENCOUNTER 2018-12-06 09:45 | Emergency (ER) | payer SELFPAY ==
[2018-12-06 09:51] VITALS: TEMP 98.9; BMI 24.4
--- NOTE | 2018-12-06 09:56 | PDOC ---
History of Present Illness - General Chief Complaint: Pain Stated Complaint: ABD PAIN Time Seen by Provider: 12/06/18 09:56 Past History - Past Medical History Allergies/Adverse Reactions: Allergies Allergy/AdvReac Type Severity Reaction Status Date / Time No Known Drug Allergies Allergy Verified 12/03/18 08:31 SEAFOOD Allergy Intermediate Swelling Uncoded 12/03/18 08:31 Home Medications: Ambulatory Orders Azithromycin [Zithromax -] 250 mg PO UTDICT #6 tab 07/18/18 Benzonatate [Tessalon Pearls -] 100 mg PO TID #21 capsule 07/18/18 Acetaminophen [Tylenol] 650 mg PO Q4H #30 tablet 12/01/18 Albuterol Sulfate Inhaler - [Ventolin HFA Inhaler -] 1 - 2 inh PO Q4H #1 inhaler 12/01/18 Guaifenesin AC [Robitussin AC] 10 ml PO Q8H #200 ml MDD 3 12/01/18 Ibuprofen 600 mg PO Q6H #30 tablet 12/01/18 Ondansetron [Zofran -] 4 mg PO Q8H #10 tablet 12/03/18 COPD: No Diabetes: Yes HTN: Yes Kidney Stones: Yes Psychiatric Problems: Yes (DEPRESSION,ANXEITY) - Surgical History Abdominal Surgery: Yes Gastric Stapling: Yes (GASTRIC SLEEVE) - Suicide/Smoking/Psychosocial Hx Smoking Status: No Smoking History: Never smoked Have you smoked in the past 12 months: No Number of Cigarettes Smoked Daily: 0 If you are a former smoker, when did you quit?: 2016 'Breaking Loose' booklet given: 09/11/17 Hx Alcohol Use: No Drug/Substance Use Hx: No Substance Use Type: None *Physical Exam - Vital Signs Last Vital Signs Temp Pulse Resp BP Pulse Ox 98.9 F 125 H 20 95/74 99 12/06/18 09:49 12/06/18 09:49 12/06/18 09:49 12/06/18 09:49 12/06/18 09:49 Moderate Sedation - Procedure Monitoring Vital Signs: Procedure Monitoring Vital Signs Temperature 98.9 F 12/06/18 09:49 Pulse Rate 125 H 12/06/18 09:49 Respiratory Rate 20 12/06/18 09:49 Blood Pressure 95/74 12/06/18 09:49 O2 Sat by Pulse Oximetry (%) 99 12/06/18 09:49
--- NOTE | 2018-12-06 10:12 | PDOC ---
History of Present Illness - General Chief Complaint: Pain Stated Complaint: ABD PAIN Time Seen by Provider: 12/06/18 09:56 Past History - Past Medical History Allergies/Adverse Reactions: Allergies Allergy/AdvReac Type Severity Reaction Status Date / Time No Known Drug Allergies Allergy Verified 12/03/18 08:31 SEAFOOD Allergy Intermediate Swelling Uncoded 12/03/18 08:31 Home Medications: Ambulatory Orders Azithromycin [Zithromax -] 250 mg PO UTDICT #6 tab 07/18/18 Benzonatate [Tessalon Pearls -] 100 mg PO TID #21 capsule 07/18/18 Acetaminophen [Tylenol] 650 mg PO Q4H #30 tablet 12/01/18 Albuterol Sulfate Inhaler - [Ventolin HFA Inhaler -] 1 - 2 inh PO Q4H #1 inhaler 12/01/18 Guaifenesin AC [Robitussin AC] 10 ml PO Q8H #200 ml MDD 3 12/01/18 Ibuprofen 600 mg PO Q6H #30 tablet 12/01/18 Ondansetron [Zofran -] 4 mg PO Q8H #10 tablet 12/03/18 COPD: No Diabetes: Yes HTN: Yes Kidney Stones: Yes Psychiatric Problems: Yes (DEPRESSION,ANXEITY) - Surgical History Abdominal Surgery: Yes Gastric Stapling: Yes (GASTRIC SLEEVE) - Suicide/Smoking/Psychosocial Hx Smoking Status: No Smoking History: Never smoked Have you smoked in the past 12 months: No Number of Cigarettes Smoked Daily: 0 If you are a former smoker, when did you quit?: 2016 'Breaking Loose' booklet given: 09/11/17 Hx Alcohol Use: No Drug/Substance Use Hx: No Substance Use Type: None *Physical Exam - Vital Signs Last Vital Signs Temp Pulse Resp BP Pulse Ox 98.9 F 125 H 20 95/74 99 12/06/18 09:49 12/06/18 09:49 12/06/18 09:49 12/06/18 09:49 12/06/18 09:49 Moderate Sedation - Procedure Monitoring Vital Signs: Procedure Monitoring Vital Signs Temperature 98.9 F 12/06/18 09:49 Pulse Rate 125 H 12/06/18 09:49 Respiratory Rate 20 12/06/18 09:49 Blood Pressure 95/74 12/06/18 09:49 O2 Sat by Pulse Oximetry (%) 99 12/06/18 09:49 Medical Decision Making - Medical Decision Making 12/06/18 10:11 HPI: 48 y/o female presenting to [facility] ER via ambulance complaining of fever, body aches, nausea, and diarrhea since Thursday. Woke up this morning complaining of a panic attack and subjective fever. Endorses a heightened sense of anxiety and rapid breathing. Reports a history of similar symptoms in the past. Pt was evaluated at this department on Thursday (01 Dec 2018) for similar complaints and found to be Flu A positive. CXR was unremarkable for acute cardiopulmonary process. Throat culture was negative for beta hemolytic strep. Pt was prescribed Tamiflu and discharged home. Pt reports tolerating PO well in interim.
[2018-12-06] MEDS ORDERED: MAG HYDROX/AL HYDROX/SIMETH -MYLANTA- ORAL SUSPENSION PO ONE (10:13)
[2018-12-06] MEDS ORDERED: ONDANSETRON 4 MG/2 ML VIAL IVPUSH ONE (10:13)
[2018-12-06] MEDS ORDERED: SODIUM CHLORIDE 1,000 ML IV STA (10:13)
[2018-12-06] MEDS ORDERED: FAMOTIDINE 20 MG/50 ML IVPB 20 MG/50 ML MG IVPB ONE ×2 (10:13→10:32)
--- NOTE | 2018-12-06 10:21 | PDOC ---
*Physical Exam - Vital Signs Last Vital Signs Temp Pulse Resp BP Pulse Ox 98.9 F 125 H 20 95/74 99 12/06/18 09:49 12/06/18 09:49 12/06/18 09:49 12/06/18 09:49 12/06/18 09:49 Medical Decision Making - Medical Decision Making 12/06/18 10:21 Pt seen by the Advanced Practice Provider under my direct supervision Ancillary studies reviewed I agree with plan as outlined by the Advanced Practice Provider ALYSSA Giraldo
--- NOTE | 2018-12-06 10:23 | PDOC ---
History of Present Illness - General Chief Complaint: Pain Stated Complaint: ABD PAIN Time Seen by Provider: 12/06/18 09:56 History Source: Patient - History of Present Illness Timing/Duration: reports: constant Quality: reports: severe Abdominal Pain Onset Location: reports: epigastric Past History - Past Medical History Allergies/Adverse Reactions: Allergies Allergy/AdvReac Type Severity Reaction Status Date / Time No Known Drug Allergies Allergy Verified 12/03/18 08:31 SEAFOOD Allergy Intermediate Swelling Uncoded 12/03/18 08:31 Home Medications: Ambulatory Orders Benzonatate [Tessalon Pearls -] 100 mg PO TID #21 capsule 07/18/18 Acetaminophen [Tylenol] 650 mg PO Q4H #30 tablet 12/01/18 Albuterol Sulfate Inhaler - [Ventolin HFA Inhaler -] 1 - 2 inh PO Q4H #1 inhaler 12/01/18 Guaifenesin AC [Robitussin AC] 10 ml PO Q8H #200 ml MDD 3 12/01/18 Ibuprofen 600 mg PO Q6H #30 tablet 12/01/18 Ondansetron [Zofran -] 4 mg PO Q8H #10 tablet 12/03/18 Famotidine [Pepcid] 20 mg PO DAILY #14 tablet 12/06/18 COPD: No Diabetes: Yes HTN: Yes Kidney Stones: Yes Psychiatric Problems: Yes (DEPRESSION,ANXEITY) - Surgical History Abdominal Surgery: Yes Gastric Stapling: Yes (GASTRIC SLEEVE) - Suicide/Smoking/Psychosocial Hx Smoking Status: No Smoking History: Never smoked Have you smoked in the past 12 months: No Number of Cigarettes Smoked Daily: 0 If you are a former smoker, when did you quit?: 2016 'Breaking Loose' booklet given: 09/11/17 Hx Alcohol Use: No Drug/Substance Use Hx: No Substance Use Type: None Review of Systems - Review of Systems Constitutional: No: Chills, Fever Respiratory: No: Shortness of Breath Cardiac (ROS): No: Chest Pain, Palpitations ABD/GI: Yes: Nausea, Vomiting. No: Diarrhea : No: Dysuria, Flank Pain, Hematuria *Physical Exam - Vital Signs Last Vital Signs Temp Pulse Resp BP Pulse Ox 98.9 F 125 H 20 95/74 99 12/06/18 09:49 12/06/18 09:49 12/06/18 09:49 12/06/18 09:49 12/06/18 09:49 - Physical Exam General Appearance: Yes: Appropriately Dressed, Severe Distress HEENT: positive: Normal Voice Neck: positive: Supple Respiratory/Chest: positive: Lungs Clear, Normal Breath Sounds. negative: Respiratory Distress Cardiovascular: positive: S1, S2, Tachycardia Gastrointestinal/Abdominal: positive: Normal Bowel Sounds, Tender (sig ttp to RUQ and epigastrium), Soft. negative: Distended, Guarding, Rebound Musculoskeletal: negative: CVA Tenderness Integumentary: positive: Dry, Warm Neurologic: positive: Fully Oriented, Alert, Normal Mood/Affect Moderate Sedation - Procedure Monitoring Vital Signs: Procedure Monitoring Vital Signs Temperature 98.9 F 12/06/18 09:49 Pulse Rate 125 H 12/06/18 09:49 Respiratory Rate 20 12/06/18 09:49 Blood Pressure 95/74 12/06/18 09:49 O2 Sat by Pulse Oximetry (%) 99 12/06/18 09:49 ED Treatment Course - LABORATORY CBC & Chemistry Diagram: 12/06/18 10:30 12/06/18 10:30 Medical Decision Making - Medical Decision Making 12/06/18 10:13 48 yo F, gastritis, takes zantax as needed, s/p gastric sleeve 7 years ago, anxiety, here w/ severe epigastric pain w/ n/v x 2 days that does not feel like her gastritis. States pain better after po intake. Denies excessive belching. Pt was seen in ED 12/01 w/ viral syndrome, dx w/ the flu and started on tamiflu but returned 3 days later w/ persistent sxs and told to dc tamiflu 2/2 possible side effects. See exam Epigastric pain Possible gastritis flare vs kwesi vs pancreatitis (though no RF) vs possible SE of tamiflu, less likely ACS, no RF for PE Appears uncomfortable and tachycardic w/ sig ttp to upper ad -trial of GI cocktail -IVF -labs -possible US 12/06/18 10:41 12/06/18 12:03 Labs unremarkable. Patient continues to complain of some upper abdominal pain. Will get ultrasound at this time and continue to manage pain in ED 12/06/18 13:39 US unremarkable. Patient states pain has since improved, appears much more comfortable and able to luis po here. Will dc with GI follow-up *DC/Admit/Observation/Transfer Diagnosis at time of Disposition: Epigastric pain - Discharge Dispostion Disposition: HOME Condition at time of disposition: Improved - Prescriptions Prescriptions: Famotidine [Pepcid] 20 mg PO DAILY #14 tablet - Referrals - Patient Instructions Printed Discharge Instructions: Gastritis, DI for Epigastric Pain Additional Instructions: The cause of your pain might be gastritis. Your labs and ultrasound were normal here. Take medication as directed and follow-up with your mental tester - Post Discharge Activity Forms/Work/School Notes: Back to Work
[2018-12-06] MEDS ORDERED: MAG HYDROX/AL HYDROX/SIMETH 30 ML UNIT-DOSE CUP ONE (10:32)
[2018-12-06] MEDS ORDERED: ONDANSETRON 4 MG/2 ML VIAL ONE (10:32)
[2018-12-06 10:51] LABS: BASO % 0.7 % (0-2.0); EOS % 0.1 % (0-4.5); HEMATOCRIT 43.9 % (32.4-45.2); HEMOGLOBIN 15.5 GM/dL (10.7-15.3); LYMPH % 20.1 % (8-40); MCH 33.5 pg (25.7-33.7); MCHC 35.3 g/dl (32.0-36.0); MEAN CELL VOLUME 94.9 fl (80-96); MEAN PLT VOLUME 7.9 fl (7.5-11.1); MONO % 10.5 % (3.8-10.2); NEUT % 68.6 % (42.8-82.8); PLATELET COUNT 205 K/MM3 (134-434); RBC 4.62 M/mm3 (3.60-5.2)
[2018-12-06 11:47] LABS: ALBUMIN 4.1 g/dl (3.4-5.0); ALK PHOS 106 U/L (45-117); ANION GAP 11 MMOL/L (8-16); BILIRUBIN,TOTAL 0.2 mg/dL (0.2-1); BLOOD UREA NITROGEN 13 mg/dL (7-18); CALCIUM 9.2 mg/dL (8.5-10.1); CHLORIDE 101 mmol/L (98-107); CO2 27 mmol/L (21-32); CREATININE 0.5 mg/dL (0.55-1.3); GLUCOSE,RANDOM 96 mg/dL (74-106); LIPASE 147 U/L (73-393); POTASSIUM 3.4 mmol/L (3.5-5.1); SGOT/AST 30 U/L (15-37); SGPT/ALT 25 U/L (13-61); SODIUM 139 mmol/L (136-145)
[2018-12-06] MEDS ORDERED: morphine CARPU-JECT 4 MG/1 ML DISP.SYRIN IVPUSH ONE (12:02)
--- NOTE | 2018-12-06 12:08 | EKG ---
Test Reason : Blood Pressure : / mmHG Vent. Rate : 093 BPM Atrial Rate : 093 BPM P-R Int : 140 ms QRS Dur : 072 ms QT Int : 350 ms P-R-T Axes : 063 080 055 degrees QTc Int : 435 ms NORMAL SINUS RHYTHM NORMAL ECG WHEN COMPARED WITH ECG OF 03-DEC-2018 08:38, T WAVE VARIATION Confirmed by CALLY GARCIA MD ([id number]) on 12/06/2018 12:08:34 PM Referred By: Confirmed By:CALLY GARCIA MD
[2018-12-06] MEDS ORDERED: MORPHINE SULFATE 2 MG/ML VIAL ONE (12:09)
[2018-12-06 12:11] VITALS: BP 121/85; PULSE 93
[2018-12-06 14:53] LABS: URINE APPEARANCE CLEAR; URINE BILIRUBIN NEGATIVE (<2.0 mg/dL); URINE COLOR YELLOW; URINE GLUCOSE (UA) NEGATIVE (NEGATIVE); URINE KETONE 1+ (NEGATIVE); URINE LEUK ESTERASE NEGATIVE (NEGATIVE); URINE NITRITE NEGATIVE (NEGATIVE); URINE PROTEIN 1+ (NEGATIVE); URINE UROBILINOGEN NEGATIVE mg/dL (0.2-1.0)
[2018-12-06 14:58] LABS: EPI CELLS RARE /HPF (FEW); URINE MUCUS FEW
== END 2018-12-06 15:20 | disposition home or self-care (01) ==
LOC: JER 09:45
PROC: 3E033GC Introduction of Other Therapeutic Substance into Peripheral Vein, Percutaneous Approach (ICD-10-PCS; principal; 2018-12-06)
PROC: 3E033GC Introduction of Other Therapeutic Substance into Peripheral Vein, Percutaneous Approach (ICD-10-PCS; 2018-12-06)
PROC: 3E033NZ Introduction of Analgesics, Hypnotics, Sedatives into Peripheral Vein, Percutaneous Approach (ICD-10-PCS; 2018-12-06)
DX: K29.70 Gastritis, unspecified, without bleeding (principal); R10.13 Epigastric pain; Z98.84 Bariatric surgery status
CPT/HCPCS: 36415; 76705-TC; 80053; 81003; 81015; 82550; 83690; 84484; 85025; 93005; 93010; 99283-25; J7030

== ENCOUNTER 2019-07-11 20:55 | Emergency (ER) | payer SELFPAY ==
[2019-07-11 21:10] VITALS: BMI 27.3
[2019-07-11] MEDS ORDERED: TETRACAINE 0.5% OPHTH SOLN 2 ML BOTTLE ONE (21:21)
[2019-07-11] MEDS ORDERED: FLUORESCEIN NA 1 EA STRIP OS ONE (21:21)
[2019-07-11] MEDS ORDERED: TETRACAINE 0.5% OPHTH SOLN 2 ML BOTTLE OS ONE (21:21)
[2019-07-11] MEDS ORDERED: FLUORESCEIN NA 1 EA STRIP ONE (21:22)
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
[2019-07-11] MEDS ORDERED: ACETAMINOPHEN 325 MG TABLET (FP) PO ONE (23:33)
[2019-07-11] MEDS ORDERED: ACETAMINOPHEN 325 MG TABLET (FP) ONE (23:35)
[2019-07-12 00:14] VITALS: BP 121/68; PULSE 90; TEMP 98
== END 2019-07-11 23:48 | disposition short-term general hospital (02) ==
LOC: JERFT 20:55 → JER 20:55
PROC: 4A07X0Z Measurement of Visual Acuity, External Approach (ICD-10-PCS; principal; 2019-07-11)
DX: S05.02XA Injury of conjunctiva and corneal abrasion without foreign body, left eye, initial encounter (principal); X08.8XXA Exposure to other specified smoke, fire and flames, initial encounter; Y93.89 Activity, other specified; Y92.038 Other place in apartment as the place of occurrence of the external cause; Y99.8 Other external cause status; I10 Essential (primary) hypertension; E11.9 Type 2 diabetes mellitus without complications; F41.8 Other specified anxiety disorders; F32.9 Major depressive disorder, single episode, unspecified; Z87.442 Personal history of urinary calculi; Z91.013 Allergy to seafood
CPT/HCPCS: 99283-25

== ENCOUNTER 2020-11-06 00:27 | Emergency (ER) | payer OTHER ==
[2020-11-06 00:37] VITALS: BP 119/73; PULSE 84; TEMP 98.6; BMI 27.3
[2020-11-06] MEDS ORDERED: KETOROLAC TROMETHAMINE 60 MG/2 ML VIAL IM ONE (00:41)
[2020-11-06] MEDS ORDERED: KETOROLAC TROMETHAMINE 60 MG/2 ML VIAL ONE (00:42)
[2020-11-06] MEDS ORDERED: morphine CARPU-JECT 2 MG/1 ML DISP.SYRIN IM ONE (01:58)
[2020-11-06] MEDS ORDERED: morphine SULFATE 4 MG/ML VIAL ONE (02:07)
== END 2020-11-06 02:23 | disposition home or self-care (01) ==
LOC: FER 00:27
PROC: 3E0233Z Introduction of Anti-inflammatory into Muscle, Percutaneous Approach (ICD-10-PCS; principal; 2020-11-06)
PROC: 3E023NZ Introduction of Analgesics, Hypnotics, Sedatives into Muscle, Percutaneous Approach (ICD-10-PCS; 2020-11-06)
DX: S39.012A Strain of muscle, fascia and tendon of lower back, initial encounter (principal)
CPT/HCPCS: 99284-25

== ENCOUNTER 2021-03-17 15:50 | Emergency (ER) | payer OTHER ==
[2021-03-17 16:08] VITALS: BP 120/80; PULSE 73; TEMP 98.8; BMI 28.3
== END 2021-03-17 16:29 | disposition home or self-care (01) ==
LOC: FER 15:50
DX: R21 Rash and other nonspecific skin eruption (principal)
CPT/HCPCS: 99282-25

== ENCOUNTER 2021-04-03 10:16 | Emergency (ER) | payer OTHER ==
[2021-04-03 10:57] VITALS: TEMP 98.1; BMI 28.3
[2021-04-03] MEDS ORDERED: ONDANSETRON 4 MG/2 ML VIAL IVPUSH ONE (11:00)
[2021-04-03] MEDS ORDERED: morphine CARPU-JECT 4 MG/1 ML DISP.SYRIN IVPUSH ONE (11:00)
[2021-04-03] MEDS ORDERED: ONDANSETRON 4 MG/2 ML VIAL ONE (11:07)
[2021-04-03] MEDS ORDERED: morphine SULFATE 4 MG/ML VIAL ONE (11:07)
[2021-04-03 11:17] LABS: BASO % 0.9 % (0-2.0); EOS % 5.2 % (0-4.5); HEMATOCRIT 38.4 % (32.4-45.2); HEMOGLOBIN 13.2 GM/dL (10.7-15.3); LYMPH % 16.8 % (8-40); MCH 32.6 pg (25.7-33.7); MCHC 34.4 g/dl (32.0-36.0); MEAN CELL VOLUME 94.9 fl (80-96); MEAN PLT VOLUME 7.2 fl (7.5-11.1); MONO % 10.7 % (3.8-10.2); NEUT % 66.4 % (42.8-82.8); PLATELET COUNT 354 10^3/uL (134-434); RBC 4.05 M/mm3 (3.60-5.2); RDW 13.3 % (11.6-15.6); WHITE BLOOD COUNT 5.7 K/mm3 (4.0-10.0)
[2021-04-03 11:28] LABS: INR 0.93 (0.83-1.09); PROTHROMBIN TIME (PATIENT) 11.3 SEC (9.7-13.0)
[2021-04-03 11:30] LABS: ACTIVATED PTT 27.8 SECONDS (25.2-36.5)
[2021-04-03 11:36] LABS: URINE APPEARANCE CLEAR; URINE BILIRUBIN NEGATIVE (NEGATIVE); URINE COLOR YELLOW; URINE GLUCOSE (UA) NEGATIVE (NEGATIVE); URINE KETONE TRACE (NEGATIVE); URINE LEUK ESTERASE NEGATIVE (NEGATIVE); URINE NITRITE NEGATIVE (NEGATIVE); URINE PROTEIN NEGATIVE (NEGATIVE)
[2021-04-03 11:47] LABS: ALBUMIN 3.8 g/dl (3.4-5.0); CALCIUM 9.4 mg/dL (8.5-10.1)
[2021-04-03 11:48] LABS: BLOOD UREA NITROGEN 21.1 mg/dL (7-18)
[2021-04-03 11:51] LABS: CREATININE 0.5 mg/dL (0.55-1.3)
[2021-04-03 11:52] LABS: BILIRUBIN,TOTAL 0.2 mg/dL (0.2-1); TOT PROT 7.2 g/dl (6.4-8.2)
[2021-04-03 15:49] VITALS: BP 107/68; PULSE 61
== END 2021-04-03 16:57 | disposition home or self-care (01) ==
LOC: JER 10:16
PROC: 3E033NZ Introduction of Analgesics, Hypnotics, Sedatives into Peripheral Vein, Percutaneous Approach (ICD-10-PCS; principal; 2021-04-03)
PROC: 3E033GC Introduction of Other Therapeutic Substance into Peripheral Vein, Percutaneous Approach (ICD-10-PCS; 2021-04-03)
DX: K52.9 Noninfective gastroenteritis and colitis, unspecified (principal)
CPT/HCPCS: 36415; 74177-TC; 76705-TC; 80053; 81003; 83690; 84702; 85025; 85610; 85730; 86850; 86900; 86901; 99285-25; Q9967

== ENCOUNTER 2021-04-05 02:26 | Emergency (ER) | payer OTHER ==
[2021-04-05 02:52] VITALS: TEMP 97.7
[2021-04-05] MEDS ORDERED: ACETAMINOPHEN 1000 MG/100 ML VIAL (NON FORMULARY) IVPB ONE (03:10)
[2021-04-05] MEDS ORDERED: ACETAMINOPHEN INJECTION 100 ML IVPB ONE (03:14)
[2021-04-05 04:03] LABS: BASO % 0.8 % (0-2.0); EOS % 5.7 % (0-4.5); HEMATOCRIT 36.3 % (32.4-45.2); HEMOGLOBIN 12.2 GM/dL (10.7-15.3); LYMPH % 32.2 % (8-40); MCH 31.9 pg (25.7-33.7); MCHC 33.7 g/dl (32.0-36.0); MEAN CELL VOLUME 94.5 fl (80-96); MEAN PLT VOLUME 7.7 fl (7.5-11.1); NEUT % 51.3 % (42.8-82.8); PLATELET COUNT 320 10^3/uL (134-434); RBC 3.84 M/mm3 (3.60-5.2); RDW 13.4 % (11.6-15.6); WHITE BLOOD COUNT 5.6 K/mm3 (4.0-10.0)
[2021-04-05 04:24] LABS: ALBUMIN 3.4 g/dl (3.4-5.0); CALCIUM 8.9 mg/dL (8.5-10.1)
[2021-04-05 04:25] LABS: BLOOD UREA NITROGEN 25.9 mg/dL (7-18)
[2021-04-05 04:29] LABS: BILIRUBIN,TOTAL 0.1 mg/dL (0.2-1); TOT PROT 6.6 g/dl (6.4-8.2)
[2021-04-05 04:31] LABS: CREATININE 0.5 mg/dL (0.55-1.3)
[2021-04-05] MEDS ORDERED: LACTATED RINGERS SOLUTION 1000 ML INFUS.BAG IV ONE (04:47)
[2021-04-05] MEDS ORDERED: morphine CARPU-JECT 2 MG/1 ML DISP.SYRIN IVPUSH ONE (06:07)
[2021-04-05 06:14] VITALS: BP 102/59; PULSE 62
[2021-04-05] MEDS ORDERED: MORPHINE SULFATE 2 MG/ML VIAL ONE (06:17)
== END 2021-04-05 07:27 | disposition home or self-care (01) ==
LOC: JER 02:26
PROC: 3E0333Z Introduction of Anti-inflammatory into Peripheral Vein, Percutaneous Approach (ICD-10-PCS; principal; 2021-04-05)
PROC: 3E033NZ Introduction of Analgesics, Hypnotics, Sedatives into Peripheral Vein, Percutaneous Approach (ICD-10-PCS; 2021-04-05)
DX: R10.9 Unspecified abdominal pain (principal)
CPT/HCPCS: 36415; 74177-TC; 80053; 83605; 83690; 85025; 93005; 93010; 99285-25; C9803; J0131; Q9967; U0003; U0005

== ENCOUNTER 2023-07-03 15:14 | Emergency (ER) | payer OTHER ==
[2023-07-03 15:31] VITALS: BP 112/79; PULSE 79; RESP 16; TEMP 99.3; BMI 27.3
[2023-07-03] MEDS ORDERED: METOCLOPRAMIDE HCL INJECTION 10 MG/2 ML VIAL IVPUSH ONE (16:24)
[2023-07-03] MEDS ORDERED: ACETAMINOPHEN 1000 MG/100 ML BAG IVPB ONE (16:24)
[2023-07-03] MEDS ORDERED: SODIUM CHLORIDE 1,000 ML IV ONE (16:25)
[2023-07-03] MEDS ORDERED: METOCLOPRAMIDE HCL INJECTION 10 MG/2 ML VIAL ONE (16:27)
[2023-07-03] MEDS ORDERED: ACETAMINOPHEN INJECTION 100 ML IVPB ONE (16:27)
[2023-07-03 16:54] LABS: HEMATOCRIT 40.1 % (32.4-45.2); HEMOGLOBIN 13.2 G/dL (10.7-15.3); MCH 31.9 pg (25.7-33.7); MCHC 32.9 g/dl (32.0-36.0); MEAN CELL VOLUME 97.2 fl (80-96); MEAN PLT VOLUME 7.5 fl (7.5-11.1); PLATELET COUNT 345.9 10^3/uL (134-434); RBC 4.13 10^6/uL (3.60-5.2); RDW 14.3 % (11.6-15.6); WHITE BLOOD COUNT 6.2 10^3/uL (4.0-10.8)
[2023-07-03 17:11] LABS: ALBUMIN 4.2 g/dl (3.4-5.0); BLOOD UREA NITROGEN 23.3 mg/dl (7-18); CREATININE 0.7 mg/dl (0.6-1.3); SGOT/AST 17.7 U/L (15-37); SGPT/ALT 12.5 U/L (7-52); TOT PROT 6.7 g/dl (6.4-8.2)
[2023-07-03 17:34] LABS: PLATELET ESTIMATE ADEQUATE
[2023-07-03 21:23] LABS: BILIRUBIN,TOTAL 0.2 mg/dL (0.2-1)
== END 2023-07-03 18:26 | disposition home or self-care (01) ==
LOC: FER 15:14
PROC: 3E033NZ Introduction of Analgesics, Hypnotics, Sedatives into Peripheral Vein, Percutaneous Approach (ICD-10-PCS; principal; 2023-07-03)
PROC: 3E033GC Introduction of Other Therapeutic Substance into Peripheral Vein, Percutaneous Approach (ICD-10-PCS; 2023-07-03)
PROC: 3E0337Z Introduction of Electrolytic and Water Balance Substance into Peripheral Vein, Percutaneous Approach (ICD-10-PCS; 2023-07-03)
DX: G44.209 Tension-type headache, unspecified, not intractable (principal); H53.149 Visual discomfort, unspecified
CPT/HCPCS: 36415; 80053; 85027; 99284-25

== ENCOUNTER 2023-07-20 12:48 | Emergency (ER) | payer OTHER ==
[2023-07-20] MEDS ORDERED: ACETAMINOPHEN 500 MG TABLET (FP) PO ONE (12:59)
[2023-07-20] MEDS ORDERED: ACETAMINOPHEN 500 MG TABLET (FP) ONE (13:23)
== END 2023-07-20 14:58 | disposition home or self-care (01) ==
LOC: FER 12:48
DX: R51.9 Headache, unspecified (principal)
CPT/HCPCS: 70450-TC; 99284-25

== ENCOUNTER 2023-12-16 11:25 | Emergency (ER) | payer OTHER ==
[2023-12-16 11:57] VITALS: BP 131/74; PULSE 95; RESP 18; TEMP 98.5; BMI 28.1
[2023-12-16] MEDS ORDERED: KETOROLAC TROMETHAMINE 30 MG/1 ML VIAL ONE (12:04)
[2023-12-16] MEDS ORDERED: ACETAMINOPHEN 325 MG TABLET (FP) ONE (12:04)
[2023-12-16] MEDS ORDERED: LIDOCAINE 5% TOPICAL PATCH ONE (12:05)
[2023-12-16] MEDS: KETOROLAC TROMETHAMINE 30 MG/1 ML VIAL IM ONE (12:13)
[2023-12-16] MEDS: LIDOCAINE 5% TOPICAL PATCH TP ONE (12:13)
[2023-12-16] MEDS: ACETAMINOPHEN 325 MG TABLET (FP) PO ONE (12:14)
== END 2023-12-16 13:18 | disposition home or self-care (01) ==
LOC: FER 11:25
PROC: 3E0233Z Introduction of Anti-inflammatory into Muscle, Percutaneous Approach (ICD-10-PCS; principal; 2023-12-16)
DX: M54.50 Low back pain, unspecified (principal); M41.9 Scoliosis, unspecified
CPT/HCPCS: 72100-TC-FY; 96372; 99284-25

== ENCOUNTER 2024-03-15 12:23 | Emergency (ER) | payer OTHER ==
[2024-03-15 12:45] VITALS: BP 114/79; PULSE 119; RESP 18; TEMP 98.1; BMI 29.2
[2024-03-15] MEDS ORDERED: DEXAMETHASONE SOD PHOSPHATE 10 MG/1 ML VIAL ONE (13:08)
[2024-03-15] MEDS ORDERED: LIDOCAINE 5% TOPICAL PATCH ONE (13:08)
[2024-03-15] MEDS ORDERED: KETOROLAC TROMETHAMINE 30 MG/1 ML VIAL ONE (13:08)
[2024-03-15] MEDS: DEXAMETHASONE SOD PHOSPHATE 10 MG/1 ML VIAL IM ONE (13:27)
[2024-03-15] MEDS: LIDOCAINE 5% TOPICAL PATCH TP ONE (13:28)
[2024-03-15] MEDS: KETOROLAC TROMETHAMINE 30 MG/1 ML VIAL IM ONE (13:28)
[2024-03-15] MEDS ORDERED: LIDOCAINE PATCH REMOVAL MC ONE (22:00)
== END 2024-03-15 15:35 | disposition home or self-care (01) ==
LOC: FER 12:23
PROC: 3E0233Z Introduction of Anti-inflammatory into Muscle, Percutaneous Approach (ICD-10-PCS; principal; 2024-03-15)
PROC: 3E02329 Introduction of Other Anti-infective into Muscle, Percutaneous Approach (ICD-10-PCS; 2024-03-15)
DX: M54.50 Low back pain, unspecified (principal); G89.29 Other chronic pain; S39.012S Strain of muscle, fascia and tendon of lower back, sequela; X58.XXXS Exposure to other specified factors, sequela
CPT/HCPCS: 99284-25; J1100

== ENCOUNTER 2024-08-19 16:25 | Observation (INO) | payer OTHER ==
[2024-08-19] MEDS ORDERED: morphine SULFATE 4 MG/ML VIAL ONE (17:17)
[2024-08-19] MEDS: morphine CARPU-JECT 2 MG/1 ML DISP.SYRIN IM ONE (17:22)
[2024-08-19] MEDS ORDERED: diazePAM 5 MG TABLET ONE (18:36)
[2024-08-19] MEDS ORDERED: LIDOCAINE 5% TOPICAL PATCH ONE (18:36)
[2024-08-19] MEDS ORDERED: HYDROmorphone HCl 2 MG/ML VIAL ONE ×2 (18:36→21:20)
[2024-08-19] MEDS ORDERED: KETOROLAC TROMETHAMINE 15 MG/ML VIAL ONE (18:36)
[2024-08-19] MEDS: HYDROmorphone HCl 2 MG/ML VIAL IVPUSH ONE ×2 (18:51→21:26)
[2024-08-19] MEDS: diazePAM 5 MG TABLET PO ONE (18:51)
[2024-08-19] MEDS: LIDOCAINE 5% TOPICAL PATCH TP ONE (18:52)
[2024-08-19] MEDS: KETOROLAC TROMETHAMINE 15 MG/ML VIAL IVPUSH ONE (18:52)
[2024-08-19 18:57] LABS: BASO % 0.2 % (0-2.0); EOS % 0.2 % (0-4.5); HEMATOCRIT 39.6 % (32.4-45.2); HEMOGLOBIN 13.3 GM/dL (10.7-15.3); LYMPH % 7.3 % (8-40); MCHC 33.7 g/dl (32.0-36.0); MEAN PLT VOLUME 7.2 fl (7.5-11.1); MONO % 5.5 % (3.8-10.2); NEUT % 86.8 % (42.8-82.8); PLATELET COUNT 341 10^3/uL (134-434); RBC 4.17 M/mm3 (3.60-5.2); RDW 13.9 % (11.6-15.6); WHITE BLOOD COUNT 13.1 K/mm3 (4.0-10.0)
[2024-08-19 19:52] LABS: ALBUMIN 3.8 g/dl (3.4-5.0); CALCIUM 9.5 mg/dL (8.5-10.1)
[2024-08-19 19:56] LABS: CREATININE 0.5 mg/dL (0.55-1.3)
[2024-08-19 19:57] LABS: BILIRUBIN,TOTAL 0.4 mg/dL (0.2-1); TOT PROT 6.9 g/dl (6.4-8.2)
[2024-08-19 20:02] LABS: POTASSIUM 4.2 mmol/L (3.5-5.1)
[2024-08-19 20:08] LABS: BLOOD UREA NITROGEN 17.8 mg/dL (7-18)
[2024-08-19] MEDS ORDERED: FAMOTIDINE 20 MG TABLET ONE (21:27)
[2024-08-19] MEDS ORDERED: ONDANSETRON 4 MG/2 ML VIAL ONE (21:27)
[2024-08-19] MEDS: FAMOTIDINE 10 MG TABLET PO ONE (21:41)
[2024-08-19] MEDS: ONDANSETRON 4 MG/2 ML VIAL IVPUSH ONE (21:41)
[2024-08-19] MEDS ORDERED: diazePAM CARPU-JECT 10 MG/2 ML DISP.SYRIN ONE (21:46)
[2024-08-19] MEDS: diazePAM CARPU-JECT 10 MG/2 ML DISP.SYRIN IVPUSH ONE (21:51)
[2024-08-20 01:03] VITALS: BMI 27.3
[2024-08-20] MEDS: ACETAMINOPHEN 325 MG TABLET (FP) PO SCH (01:38)
[2024-08-20] MEDS: morphine SULFATE 4 MG/ML VIAL IVPUSH PRN (01:38)
[2024-08-20] MEDS: oxyCODONE HCL 5 MG TABLET PO PRN (02:35)
[2024-08-20 06:58] LABS: URINE APPEARANCE CLEAR; URINE BILIRUBIN NEGATIVE (NEGATIVE); URINE COLOR YELLOW; URINE GLUCOSE (UA) NEGATIVE (NEGATIVE); URINE KETONE TRACE (NEGATIVE); URINE LEUK ESTERASE NEGATIVE (NEGATIVE); URINE NITRITE NEGATIVE (NEGATIVE); URINE PROTEIN NEGATIVE (NEGATIVE); URINE UROBILINOGEN 0.2 mg/dL (0.2-1.0)
[2024-08-20] MEDS: ENOXAPARIN NA (PORCINE) 40 MG/0.4 ML DISP.SYRIN SQ SCH (09:46)
[2024-08-20] MEDS: DOCUSATE SODIUM 100 MG CAPSULE (FP) PO SCH (09:46)
[2024-08-20 10:02] LABS: BASO % 0.3 % (0-2.0); EOS % 0.7 % (0-4.5); HEMATOCRIT 38.4 % (32.4-45.2); LYMPH % 16.6 % (8-40); MCH 32.5 pg (25.7-33.7); MCHC 33.9 g/dl (32.0-36.0); MEAN CELL VOLUME 95.8 fl (80-96); MEAN PLT VOLUME 7.7 fl (7.5-11.1); MONO % 5.4 % (3.8-10.2); PLATELET COUNT 294 10^3/uL (134-434); RDW 13.8 % (11.6-15.6); WHITE BLOOD COUNT 5.8 K/mm3 (4.0-10.0)
[2024-08-20 10:14] LABS: POTASSIUM 3.4 mmol/L (3.5-5.1)
[2024-08-20 10:59] LABS: ALBUMIN 3.5 g/dl (3.4-5.0); BLOOD UREA NITROGEN 11.5 mg/dL (7-18); CALCIUM 9.1 mg/dL (8.5-10.1); MAGNESIUM 2.1 mg/dL (1.8-2.4)
[2024-08-20 11:02] LABS: CREATININE 0.4 mg/dL (0.55-1.3)
[2024-08-20 11:03] LABS: PHOSPHOROUS 3.8 mg/dL (2.5-4.9)
[2024-08-20 11:06] LABS: BILIRUBIN,TOTAL 0.5 mg/dL (0.2-1); TOT PROT 6.6 g/dl (6.4-8.2)
[2024-08-20] MEDS: KETOROLAC TROMETHAMINE 15 MG/ML VIAL IM ONE (11:43)
[2024-08-20] MEDS: diazePAM 2 MG TABLET PO PRN (11:43)
[2024-08-20] MEDS: ACETAMINOPHEN 1000 MG/100 ML BAG IVPB SCH (12:37)
[2024-08-20] MEDS: POTASSIUM CHLORIDE TABS 20 MEQ TABLET.ER (FP) PO ONE (13:56)
[2024-08-20] MEDS: LIDOCAINE 4% PATCH TP SCH (13:56)
[2024-08-20] MEDS: MAG HYDROX/AL HYDROX/SIMETH 30 ML UNIT-DOSE CUP PO ONE (17:27)
[2024-08-20] MEDS: PANTOPRAZOLE 40 MG TABLET PO SCH (17:27)
[2024-08-20] MEDS: LIDOCAINE PATCH REMOVAL MC SCH (21:31)
[2024-08-21 02:56] VITALS: RESP 18
[2024-08-21 10:44] LABS: BASO % 0.3 % (0-2.0); EOS % 1.9 % (0-4.5); HEMATOCRIT 38.6 % (32.4-45.2); HEMOGLOBIN 12.9 GM/dL (10.7-15.3); LYMPH % 17.5 % (8-40); MCH 32.6 pg (25.7-33.7); MCHC 33.4 g/dl (32.0-36.0); MEAN CELL VOLUME 97.5 fl (80-96); MEAN PLT VOLUME 7.4 fl (7.5-11.1); MONO % 7.5 % (3.8-10.2); NEUT % 72.8 % (42.8-82.8); PLATELET COUNT 278 10^3/uL (134-434); RBC 3.96 M/mm3 (3.60-5.2); RDW 13.6 % (11.6-15.6); WHITE BLOOD COUNT 5.4 K/mm3 (4.0-10.0)
[2024-08-21 11:32] LABS: POTASSIUM 4.9 mmol/L (3.5-5.1)
[2024-08-21 11:33] LABS: CALCIUM 9.1 mg/dL (8.5-10.1)
[2024-08-21 11:37] LABS: CREATININE 0.5 mg/dL (0.55-1.3)
[2024-08-22] MEDS: oxyCODONE HCL 5 MG TABLET PO PRN (12:24)
[2024-08-22] MEDS: ACETAMINOPHEN 500 MG TABLET (FP) PO SCH (12:25)
[2024-08-22] MEDS: GABAPENTIN 100 MG CAPSULE PO SCH (13:17)
[2024-08-22 15:25] VITALS: BP 114/85; PULSE 116; TEMP 98.1
== END 2024-08-22 15:26 | disposition home or self-care (01) ==
LOC: JER 16:25 → JERBED 19:14 → J8W 08-20 00:41
PROVIDERS: ADMIT Internal Medicine; ATTEND Nurse Practitioner Acute Care
PROC: 3E033NZ Introduction of Analgesics, Hypnotics, Sedatives into Peripheral Vein, Percutaneous Approach (ICD-10-PCS; principal; 2024-08-19)
PROC: 3E023GC Introduction of Other Therapeutic Substance into Muscle, Percutaneous Approach (ICD-10-PCS; 2024-08-19)
PROC: 3E033NZ Introduction of Analgesics, Hypnotics, Sedatives into Peripheral Vein, Percutaneous Approach (ICD-10-PCS; 2024-08-19)
PROC: 3E0333Z Introduction of Anti-inflammatory into Peripheral Vein, Percutaneous Approach (ICD-10-PCS; 2024-08-19)
PROC: 3E0233Z Introduction of Anti-inflammatory into Muscle, Percutaneous Approach (ICD-10-PCS; 2024-08-19)
PROC: 3E033GC Introduction of Other Therapeutic Substance into Peripheral Vein, Percutaneous Approach (ICD-10-PCS; 2024-08-19)
DX: S32.049A Unspecified fracture of fourth lumbar vertebra, initial encounter for closed fracture (principal); W18.39XA Other fall on same level, initial encounter; Y93.E9 Activity, other interior property and clothing maintenance; Y92.009 Unspecified place in unspecified non-institutional (private) residence as the place of occurrence of the external cause; K21.9 Gastro-esophageal reflux disease without esophagitis; G89.29 Other chronic pain; M54.50 Low back pain, unspecified; D72.829 Elevated white blood cell count, unspecified; F41.8 Other specified anxiety disorders
CPT/HCPCS: 36415; 70450-TC; 71045-TC-FY; 72131-TC; 72148-TC; 72192-TC; 76775-TC; 80048; 80053; 81003; 83735; 84100; 85025; 87081; 93005; 93010; 96361; 96365; 96366; 96367; 96372; 97116-GP; 97161-GP; 99285-25; G0378; J0131